=== PATIENT | male | born 1965 | race Two or more races ===

== ENCOUNTER 2018-06-24 13:11 | Emergency (ER) | payer OTHER ==
[~2018-06-24] VITALS: Ht 170.2 cm; Wt 106.6 kg
[~2018-06-24 13:11] MED LIST: INTESTINEX1 CAP PO; METOPROLOL SUCC25 MG
[2018-06-24] MEDS ORDERED: JANUMET 50-1,01 EACH PO (13:20)
== END 2018-06-24 19:58 | disposition home or self-care (01) ==
LOC: ER 13:11
DX: K80.20 Calculus of gallbladder without cholecystitis without obstruction (principal); N39.0 Urinary tract infection, site not specified; R10.32 Left lower quadrant pain

== ENCOUNTER 2018-10-22 14:28 | Emergency (ER) | payer OTHER ==
[~2018-10-22] VITALS: Ht 167.6 cm; Wt 97.5 kg
[~2018-10-22 14:28] MED LIST changes: +JANUMET 50-1,01 EACH PO
== END 2018-10-22 21:38 | disposition home or self-care (01) ==
LOC: ER 14:28
DX: R18.8 Other ascites (principal); K80.20 Calculus of gallbladder without cholecystitis without obstruction; R10.30 Lower abdominal pain, unspecified

== ENCOUNTER 2019-11-12 09:48 | Outpatient (CLI) | payer OTHER | END 2019-11-12 09:58 | disposition home or self-care (01) | LOC: NUCLEAR 09:48 | DX: C18.8 Malignant neoplasm of overlapping sites of colon (principal); C78.6 Secondary malignant neoplasm of retroperitoneum and peritoneum; C78.7 Secondary malignant neoplasm of liver and intrahepatic bile duct | CPT/HCPCS: 78816; A9552 ==